=== PATIENT | male | born 1990 | race Caucasian/White ===

== ENCOUNTER 2017-01-03 11:14 | Inpatient (IN) | payer OTHER ==
[2017-01-03 11:47] VITALS: BMI 26.6
--- NOTE | 2017-01-03 15:06 | HP ---
CIWA Score - CIWA Score Nausea/Vomitin-Mild Nausea/No Vomiting Muscle Tremors: 4-Moderate,w/Arms Extend Anxiety: 4-Mod. Anxious/Guarded Agitation: 4-Moderately Restless Paroxysmal Sweats: 3 Orientation: 0-Oriented Tacttile Disturbances: 0-None Auditory Disturbances: 0-None Visual Disturbances: 0-None Headache: 0-None Present CIWA-Ar Total Score: 16 Admission ROS BHS - HPI Chief Complaint: Withdrawal sx. Allergies/Adverse Reactions: Allergies Allergy/AdvReac Type Severity Reaction Status Date / Time No Known Allergies Allergy Verified 01/03/17 13:30 History of Present Illness: 26 y/o man with hx. of cocaine & alcohol dependence is admitted for detox.Pt. has been in previous detox,denies significant sobriety. Exam Limitations: No Limitations - Ebola screening Have you traveled outside of the country in the last 21 days: No Have you had contact with anyone from an Ebola affected area: No Have you been sick,other than usual withdrawal symptoms: No Do you have a fever: No - Review of Systems Constitutional: Diaphoresis EENT: reports: No Symptoms Reported Respiratory: reports: No Symptoms reported Cardiac: reports: No Symptoms Reported GI: reports: Nausea, Abdominal cramping : reports: No Symptoms Reported Musculoskeletal: reports: No Symptoms Reported Integumentary: reports: Sweating Neuro: reports: Tremors Endocrine: reports: No Symptoms Reported Hematology: reports: No Symptoms Reported Psychiatric: reports: No Sypmtoms Reported Other Systems: Reviewed and Negative Patient History - Patient Medical History Hx Anemia: No Hx Asthma: No Hx Chronic Obstructive Pulmonary Disease (COPD): No Hx Cancer: No Hx Cardiac Disorders: No Hx Congestive Heart Failure: No Hx Hypertension: No Hx Hypercholesterolemia: No Hx Pacemaker: No HX Cerebrovascular Accident: No Hx Seizures: No Hx Dementia: No Hx Diabetes: No Hx Gastrointestinal Disorders: No Hx Liver Disease: No Hx Genitourinary Disorders: No Hx Sexually Transmitted Disorders: No Hx Renal Disease (ESRD): No Hx Thyroid Disease: No Hx Human Immunodeficiency Virus (HIV): No Hx Hepatitis C: No Hx Depression: Yes Hx Suicide Attempt: Yes (Pt tried to cut his wrist in 2014) Hx Bipolar Disorder: No Hx Schizophrenia: Yes - Patient Surgical History Past Surgical History: No Hx Neurologic Surgery: No Hx Cataract Extraction: No Hx Cardiac Surgery: No Hx Lung Surgery: No Hx Breast Surgery: No Hx Breast Biopsy: No Hx Abdominal Surgery: No Hx Appendectomy: No Hx Cholecystectomy: No Hx Genitourinary Surgery: No Hx Section: No Hx Orthopedic Surgery: No Anesthesia Reaction: No - PPD History Documented Results: Negative w/proof Implanted On Prior R Admission?: Yes Date: 11/10/16 Results: 0 MM PPD to be Administered?: No - Smoking Cessation Smoking history: Current every day smoker Have you smoked in the past 12 months: Yes Aproximately how many cigarettes per day: 2 Cigars Per Day: 0 Hx Chewing Tobacco Use: No Initiated information on smoking cessation: Yes 'Breaking Loose' booklet given: 01/03/17 - Substance & Tx. History Hx Alcohol Use: Yes Hx Substance Use: Yes Substance Use Type: Alcohol Hx Substance Use Treatment: Yes (detox) - Substances Abused Alcohol Route: Oral Frequency: Daily Amount used: 6PK BEER Age of first use: 12 Date of Last Use: 01/02/17 Cocaine Route: Inhalation Frequency: 1-3 times last 30 days Amount used: 2-3 BAGS Age of first use: 12 Date of Last Use: 01/02/17 Family Disease History - Family Disease History Family Disease History: Diabetes: Mother, Other: Father (mental health), Brother (mental health), Sister (mental health) Admission Physical Exam BHS - Vital Signs Vital Signs: Vital Signs - 24 hr 01/03/17 11:45 Temperature 97.8 F Pulse Rate 88 Respiratory 18 Rate Blood Pressure 127/71 - Physical General Appearance: Yes: Tremorous, Irritable, Sweating, Anxious HEENTM: Yes: Within Normal Limits Respiratory: Yes: Chest Non-Tender, Lungs Clear, Normal Breath Sounds Neck: Yes: Supple Breast: Yes: Breast Exam Deferred Cardiology: Yes: Regular Rhythm, Regular Rate, S1, S2 Abdominal: Yes: Normal Bowel Sounds, Non Tender, Soft Genitourinary: Yes: Within Normal Limits Back: Yes: Within Normal Limits Musculoskeletal: Yes: Within Normal Limits Extremities: Yes: Tremors Neurological: Yes: Fully Oriented, Alert Integumentary: Yes: Diaphoresis Lymphatic: Yes: Within Normal Limits - Diagnostic (1) Alcohol dependence with uncomplicated withdrawal Current Visit: Yes Status: Acute (2) Cocaine dependence Current Visit: Yes Status: Acute Qualifiers: Substance use status: uncomplicated Qualified Code(s): F14.20 - Cocaine dependence, uncomplicated (3) Nicotine dependence Current Visit: Yes Status: Acute Qualifiers: Nicotine product type: cigarettes Substance use status: uncomplicated Qualified Code(s): F17.210 - Nicotine dependence, cigarettes, uncomplicated (4) Schizophrenia Current Visit: Yes Status: Suspected Qualifiers: Schizophrenia type: unspecified Qualified Code(s): F20.9 - Schizophrenia, unspecified Cleared for Admission BHS - Detox or Rehab [facility] Level of Care: Medically Managed Detox Regimen/Protocol: Librium S Breath Alcohol Content Breath Alcohol Content: 0 Urine Drug Screen - Results Drug Screen Negative: No Urine Drug Screen Results: GURDEEP-Cocaine
[2017-01-03] MEDS ORDERED: chlordiazePOXIDE HCL 25 MG CAPSULE PO PRN (15:11)
[2017-01-03] MEDS ORDERED: MENTHOL/PHENOL 1 EACH UD MM PRN (15:11)
[2017-01-03] MEDS ORDERED: MAG HYDROX/AL HYDROX/SIMETH 30 ML UNIT-DOSE CUP PO PRN (15:11)
[2017-01-03] MEDS ORDERED: MAGNESIUM CITRATE 300 ML BOTTLE PO PRN (15:11)
[2017-01-03] MEDS ORDERED: MAGNESIUM HYDROX 2400MG/30ML ORAL SUSPENSION 30 ML CUP PO PRN (15:11)
[2017-01-03] MEDS ORDERED: ACETAMINOPHEN 325 MG TABLET (FP) PO PRN (15:11)
[2017-01-03] MEDS ORDERED: guaiFENesin/D-METHORPHAN HB 10 ML UNIT-DOSE CUPS PO PRN (15:11)
[2017-01-03] MEDS ORDERED: diphenhydrAMINE HCL 50 MG CAPSULE PO PRN (15:11)
[2017-01-03] MEDS ORDERED: IBUPROFEN 400 MG TABLET (FP) PO PRN (15:11)
[2017-01-03] MEDS ORDERED: P-EPHED 60MG/TRIPROLIDI 2.5MG TABLET PO PRN (15:11)
[2017-01-03] MEDS ORDERED: LOPERAMIDE HCL 2 MG CAPSULE PO PRN (15:11)
[2017-01-03] MEDS: chlordiazePOXIDE HCL 25 MG CAPSULE PO SCH ×2 (17:05→22:27)
[2017-01-03 18:51] LABS: HIV 1 & 2 AB NEGATIVE; HIV 1 AGp24 NEGATIVE
[2017-01-03 20:40] LABS: URINE APPEARANCE CLEAR; URINE BILIRUBIN NEGATIVE (NEGATIVE); URINE BLOOD NEGATIVE (NEGATIVE); URINE COLOR LTYELLOW; URINE GLUCOSE (UA) NEGATIVE (NEGATIVE); URINE KETONE NEGATIVE (NEGATIVE); URINE LEUK ESTERASE NEGATIVE (NEGATIVE); URINE NITRITE NEGATIVE (NEGATIVE); URINE PROTEIN NEGATIVE (NEGATIVE); URINE UROBILINOGEN NEGATIVE E.U./dl (0.2-1.0)
[2017-01-03] MEDS: THIAMINE HCL 100 MG TABLET (FP) PO SCH (22:27)
[2017-01-04] MEDS: chlordiazePOXIDE HCL 25 MG CAPSULE PO SCH ×4 (06:22→22:36)
[2017-01-04 10:17] LABS: MCH 28.8 pg (25.7-33.7); MCHC 32.6 g/dl (32.0-35.9); MEAN CELL VOLUME 88.2 fl (80-96); MEAN PLT VOLUME 9.3 fl (7.5-11.1); PLATELET COUNT 299 K/MM3 (134-434); RDW 13.4 % (11.9-15.9); WHITE BLOOD COUNT 7.6 K/mm3 (4.0-10.0)
[2017-01-04] MEDS: PRENATAL VITAMINS W/ FOLIC ACID TABLET (FP) PO SCH (10:19)
[2017-01-04 10:39] LABS: ALBUMIN 4.2 g/dl (3.4-5.0); ALK PHOS 87 U/L (45-117); ANION GAP 10 (8-16); BILIRUBIN,TOTAL 0.3 mg/dL (0.2-1.0); CO2 28 mmol/L (21-32); CREATININE 1.3 mg/dL (0.7-1.3); GLUCOSE,RANDOM 75 mg/dL (74-106); SGOT/AST 20 U/L (15-37); SGPT/ALT 33 U/L (12-78); TOT PROT 7.5 g/dl (6.4-8.2)
--- NOTE | 2017-01-04 10:42 | PN ---
[facility] CIWA - CIWA Score Nausea/Vomitin-No Nausea/No Vomiting Muscle Tremors: 4-Moderate,w/Arms Extend Anxiety: 5 Agitation: 3 Paroxysmal Sweats: 2 Orientation: 0-Oriented Tacttile Disturbances: 2-Mild Itch/Numbness/Burn Auditory Disturbances: 0-None Visual Disturbances: 0-None Headache: 0-None Present CIWA-Ar Total Score: 16 BHS Progress Note (SOAP) Subjective: ANXIETY,TREMORS,FATIGUE,"FEELING DROWSY". Objective: 01/04/17 10:41 Vital Signs Temperature 97.2 F L 01/03/17 23:29 Pulse Rate 85 01/03/17 23:29 Respiratory Rate 18 01/04/17 03:30 Blood Pressure 110/81 01/03/17 23:29 O2 Sat by Pulse Oximetry (%) Laboratory Last Values WBC 7.6 K/mm3 (4.0-10.0) 01/04/17 06:20 RBC 4.91 M/mm3 (4.00-5.60) 01/04/17 06:20 Hgb 14.1 GM/dL (11.7-16.9) 01/04/17 06:20 Hct 43.3 % (35.4-49) 01/04/17 06:20 MCV 88.2 fl (80-96) 01/04/17 06:20 MCHC 32.6 g/dl (32.0-35.9) 01/04/17 06:20 RDW 13.4 % (11.9-15.9) 01/04/17 06:20 Plt Count 299 K/MM3 (134-434) D 01/04/17 06:20 MPV 9.3 fl (7.5-11.1) 01/04/17 06:20 Urine Color Ltyellow 01/03/17 20:15 Urine Appearance Clear 01/03/17 20:15 Urine pH 5.0 (5.0-8.0) 01/03/17 20:15 Ur Specific [place] 1.015 (1.001-1.035) 01/03/17 20:15 Urine Protein Negative (NEGATIVE) 01/03/17 20:15 Urine Glucose (UA) Negative (NEGATIVE) 01/03/17 20:15 Urine Ketones Negative (NEGATIVE) 01/03/17 20:15 Urine Blood Negative (NEGATIVE) 01/03/17 20:15 Urine Nitrite Negative (NEGATIVE) 01/03/17 20:15 Urine Bilirubin Negative (NEGATIVE) 01/03/17 20:15 Urine Urobilinogen Negative E.U./dl (0.2-1.0) 01/03/17 20:15 Ur Leukocyte Esterase Negative (NEGATIVE) 01/03/17 20:15 HIV 1&2 Antibody Screen Negative 01/03/17 14:00 HIV P24 Antigen Negative 01/03/17 14:00 Assessment: 01/04/17 10:41 WITHDRAWAL SX Plan: CONTINUE DETOX
--- NOTE | 2017-01-04 11:56 | CONSULT ---
[facility] Psychiatric Consult - Data Date of interview: 01/04/17 Admission source: [facility] Identifying data: Readmission to [facility] for this 26 y/o male seeking detox treatment on for alcohol and cocaine dependence.Patient is ,a father of one,domiciled,unemployed and dependent on friends for financial support. Substance Abuse History: - Smoking Cessation. Smoking history: Current every day smoker. Have you smoked in the past 12 months: Yes. Aproximately how many cigarettes per day: 2. Cigars Per Day: 0. Hx Chewing Tobacco Use: No. Initiated information on smoking cessation: Yes. 'Breaking Loose' booklet given : 01/03/17. - Substance & Tx. History. Hx Alcohol Use: Yes. Hx Substance Use : Yes. Substance Use Type: Alcohol. Hx Substance Use Treatment: Yes (detox). - Substances Abused. Alcohol. Route: Oral. Frequency: Daily. Amount used : 6PK BEER. Age of first use: 12. Date of Last Use: 01/02/17. Cocaine. Route: Inhalation. Frequency: 1-3 times last 30 days. Amount used: 2-3 BAGS. Age of first use: 12. Date of Last Use: 01/02/17. Confirmed by patient in this interview. Medical History: No reported medical problems. Psychiatric History: History of " a few " psychiatric hospitalizations ([facility] in [facility]).Diagnosed with " schizophrenia and bipolar disorder." Patient states that he is prescibed zoloft and " some other stuff." No OPD care providers.Mr He reports that he had just returned to [facility] a week ago.Non adherent to medications.hHistory of suicide attempt via self- mutilation. Physical/Sexual Abuse/Trauma History: Patient denies. Additional Comment: Urine Drug Screen Results: GURDEEP-Cocaine.Noted. Mental Status Exam - Mental Status Exam Alert and Oriented to: Time, Place, Person Cognitive Function: Good Patient Appearance: Well Groomed Mood: Nervous, Withdrawn Affect: Mood Congruent Patient Behavior: Fatigued, Cooperative (superficially) Speech Pattern: Clear Voice Loudness: Normal Thought Process: Goal Oriented Thought Disorder: Not Present Hallucinations: Denies Suicidal Ideation: Denies Homicidal Ideation: Denies Insight/Judgement: Poor Sleep: Well Appetite: Good Muscle strength/Tone: Normal Gait/Station: Normal Psychiatric Findings - Problem List ([place] 1, 2,3) (1) Alcohol dependence with uncomplicated withdrawal Current Visit: Yes Status: Acute (2) Cocaine dependence Current Visit: Yes Status: Acute Qualifiers: Substance use status: uncomplicated Qualified Code(s): F14.20 - Cocaine dependence, uncomplicated (3) Nicotine dependence Current Visit: Yes Status: Acute Qualifiers: Nicotine product type: cigarettes Substance use status: uncomplicated Qualified Code(s): F17.210 - Nicotine dependence, cigarettes, uncomplicated (4) Schizophrenia Current Visit: Yes Status: Chronic Qualifiers: Schizophrenia type: unspecified Qualified Code(s): F20.9 - Schizophrenia, unspecified (5) Onychomycosis Current Visit: Yes Status: Chronic Comment: keale - Initial Treatment Plan Initial Treatment Plan: Psychoeducation.Detoxification.Medications : haldol 5 mg po bid + cogentin 1 mg po bid.Side effects/benefits discussed with the patient.He agrees with this careplan.Observation.
[2017-01-04] MEDS ORDERED: PNEUMOC 13-VAL CONJ-DIP CRM/PF 0.5 ML DISP.SYRIN IM ONE (12:00)
[2017-01-04] MEDS ORDERED: INFLUENZA VACCINE 45 MCG/0.5 ML (MDV 16-17) IM ONE (12:00)
[2017-01-04] MEDS ORDERED: PNEUMOCOCCAL 23 VACCINE 0.5 ML VIAL IM ONE (12:00)
[2017-01-04] MEDS ORDERED: BENZTROPINE MESYLATE 1 MG TABLET (FP) PO SCH (12:30)
[2017-01-04] MEDS ORDERED: HALOPERIDOL 5 MG TABLET (FP) PO SCH (12:30)
--- NOTE | 2017-01-04 16:12 | EKG ---
Test Reason : Blood Pressure : / mmHG Vent. Rate : 065 BPM Atrial Rate : 065 BPM P-R Int : 136 ms QRS Dur : 092 ms QT Int : 392 ms P-R-T Axes : 015 060 038 degrees QTc Int : 407 ms NORMAL SINUS RHYTHM WITH SINUS ARRHYTHMIA NORMAL ECG NO PREVIOUS ECGS AVAILABLE Confirmed by PATO JACQUES, ALIREZA ([id number]) on 01/04/2017 4:12:30 PM Referred By: Confirmed By:ALIREZA WHYTE MD
--- NOTE | 2017-01-04 20:04 | PN ---
[facility] Progress Note Note: Psychiatry Attending's note : YUNG Ambirz reported patient as sedated. Report was received much earlier,around 4 PM. Patient seen at bedside.Did answer to simple questions. Was able to follow simple commands.No evidence of distress. Plan : haldol and cogentin on hold until further orders. Discussed with the reporting nurse.
[2017-01-04] MEDS: THIAMINE HCL 100 MG TABLET (FP) PO SCH (22:36)
[2017-01-05] MEDS: chlordiazePOXIDE HCL 25 MG CAPSULE PO SCH ×2 (06:20→10:15)
[2017-01-05 09:57] VITALS: BP 129/87; PULSE 79; TEMP 97.1
[2017-01-05] MEDS ORDERED: SERTRALINE HCL 50 MG TABLET (FP) PO SCH (10:00)
[2017-01-05] MEDS: PRENATAL VITAMINS W/ FOLIC ACID TABLET (FP) PO SCH (10:14)
--- NOTE | 2017-01-05 10:36 | PN ---
[facility] CIWA - CIWA Score Nausea/Vomitin-No Nausea/No Vomiting Muscle Tremors: 4-Moderate,w/Arms Extend Anxiety: 4-Mod. Anxious/Guarded Agitation: 2 Paroxysmal Sweats: 2 Orientation: 0-Oriented Tacttile Disturbances: 3-Moderate Itch/Numb/Burn Auditory Disturbances: 0-None Visual Disturbances: 0-None Headache: 0-None Present CIWA-Ar Total Score: 15 BHS Progress Note (SOAP) Subjective: ANXIETY,SWEATS,TREMORS. Objective: 01/05/17 10:36 Vital Signs Temperature 97.1 F L 01/05/17 09:56 Pulse Rate 79 01/05/17 09:56 Respiratory Rate 18 01/05/17 09:56 Blood Pressure 129/87 01/05/17 09:56 O2 Sat by Pulse Oximetry (%) Laboratory Last Values WBC 7.6 K/mm3 (4.0-10.0) 01/04/17 06:20 RBC 4.91 M/mm3 (4.00-5.60) 01/04/17 06:20 Hgb 14.1 GM/dL (11.7-16.9) 01/04/17 06:20 Hct 43.3 % (35.4-49) 01/04/17 06:20 MCV 88.2 fl (80-96) 01/04/17 06:20 MCHC 32.6 g/dl (32.0-35.9) 01/04/17 06:20 RDW 13.4 % (11.9-15.9) 01/04/17 06:20 Plt Count 299 K/MM3 (134-434) D 01/04/17 06:20 MPV 9.3 fl (7.5-11.1) 01/04/17 06:20 Sodium 142 mmol/L (136-145) 01/04/17 06:20 Potassium 4.3 mmol/L (3.5-5.1) 01/04/17 06:20 Chloride 104 mmol/L (98-107) 01/04/17 06:20 Carbon Dioxide 28 mmol/L (21-32) 01/04/17 06:20 Anion Gap 10 (8-16) 01/04/17 06:20 BUN 9 mg/dL (7-18) D 01/04/17 06:20 Creatinine 1.3 mg/dL (0.7-1.3) 01/04/17 06:20 Creat Clearance w eGFR > 60 (>60) 01/04/17 06:20 Random Glucose 75 mg/dL (74-106) 01/04/17 06:20 Calcium 9.0 mg/dL (8.5-10.1) 01/04/17 06:20 Total Bilirubin 0.3 mg/dL (0.2-1.0) D 01/04/17 06:20 AST 20 U/L (15-37) D 01/04/17 06:20 ALT 33 U/L (12-78) D 01/04/17 06:20 Alkaline Phosphatase 87 U/L (45-117) 01/04/17 06:20 Total Protein 7.5 g/dl (6.4-8.2) 01/04/17 06:20 Albumin 4.2 g/dl (3.4-5.0) D 01/04/17 06:20 Urine Color Ltyellow 01/03/17 20:15 Urine Appearance Clear 01/03/17 20:15 Urine pH 5.0 (5.0-8.0) 01/03/17 20:15 Ur Specific [place] 1.015 (1.001-1.035) 01/03/17 20:15 Urine Protein Negative (NEGATIVE) 01/03/17 20:15 Urine Glucose (UA) Negative (NEGATIVE) 01/03/17 20:15 Urine Ketones Negative (NEGATIVE) 01/03/17 20:15 Urine Blood Negative (NEGATIVE) 01/03/17 20:15 Urine Nitrite Negative (NEGATIVE) 01/03/17 20:15 Urine Bilirubin Negative (NEGATIVE) 01/03/17 20:15 Urine Urobilinogen Negative E.U./dl (0.2-1.0) 01/03/17 20:15 Ur Leukocyte Esterase Negative (NEGATIVE) 01/03/17 20:15 RPR Titer Nonreactive (NONREACTIVE) 01/04/17 06:20 HIV 1&2 Antibody Screen Negative 01/03/17 14:00 HIV P24 Antigen Negative 01/03/17 14:00 Assessment: 01/05/17 10:36 WITHDRAWAL SX Plan: CONTINUE DETOX
--- NOTE | 2017-01-05 13:16 | DS ---
[facility] Detox Discharge Summary Admission Date: 01/03/17 Discharge Date: 01/05/17 - History Present History: Alcohol Dependence, Cocaine Dependence Additional Comments: PT DECLINED TO COMPLETE DETOX STATING HE WANTS TO LEAVE. PT SIGNED OUT AMA Pertinent Past History: ONYCHOMYCOSIS SCHIZOPHRENIA - Physical Exam Results Vital Signs: Vital Signs Temperature 97.1 F L 01/05/17 09:56 Pulse Rate 79 01/05/17 09:56 Respiratory Rate 18 01/05/17 09:56 Blood Pressure 129/87 01/05/17 09:56 O2 Sat by Pulse Oximetry (%) Pertinent Admission Physical Exam Findings: WITHDRAWAL SX - Treatment Hospital Course: Discharged Condition Good - Medication Discharge Medications: Ambulatory Orders Benztropine Mesylate [Cogentin -] 1 mg PO BID #60 tablet 11/09/16 Haloperidol [Haldol -] 5 mg PO BID #60 tablet 11/09/16 Sertraline HCl [Zoloft -] 50 mg PO DAILY #60 tablet 11/09/16 Benztropine Mesylate [Cogentin -] 1 mg PO BID #60 tab 01/04/17 Haloperidol [Haldol -] 5 mg PO BID #60 tablet 01/04/17 Sertraline HCl [Zoloft -] 50 mg PO DAILY #30 tablet 01/04/17 - Diagnosis (1) Alcohol dependence with uncomplicated withdrawal Status: Acute (2) Nicotine dependence Status: Acute Qualifiers: Nicotine product type: cigarettes Substance use status: in withdrawal Qualified Code(s): F17.213 - Nicotine dependence, cigarettes, with withdrawal (3) Cocaine dependence Status: Acute Qualifiers: Substance use status: uncomplicated Qualified Code(s): F14.20 - Cocaine dependence, uncomplicated (4) Schizophrenia Status: Chronic Qualifiers: Schizophrenia type: unspecified Qualified Code(s): F20.9 - Schizophrenia, unspecified - AMA Did Patient Leave Against Medical Advice: Yes (AMA)
[2017-01-05] MEDS ORDERED: chlordiazePOXIDE 5 MG CAPSULE PO SCH (17:00)
[2017-01-06] MEDS ORDERED: chlordiazePOXIDE HCL 10 MG CAPSULE PO SCH (17:00)
== END 2017-01-05 13:37 | disposition left against medical advice (07) | DRG 894 ==
LOC: YASAS 11:14 → Y3N 14:52
PROVIDERS: ADMIT Internal Medicine; ATTEND Internal Medicine
PROC: HZ2ZZZZ Detoxification Services for Substance Abuse Treatment (ICD-10-PCS; principal; 2017-01-03)
DX: F10.230 Alcohol dependence with withdrawal, uncomplicated (principal); F14.20 Cocaine dependence, uncomplicated; F17.210 Nicotine dependence, cigarettes, uncomplicated; F20.9 Schizophrenia, unspecified; Z91.5 Personal history of self-harm; B35.1 Tinea unguium
CPT/HCPCS: 36415; 80053; 81003; 85027; 86593; 87389; 90732; 93005; 93010; G0009

== ENCOUNTER 2017-07-15 16:48 | Inpatient (IN) | payer OTHER ==
[2017-07-15 16:54] VITALS: BMI 26.2
--- NOTE | 2017-07-15 19:02 | HP ---
Admission ROS [facility] Chief Complaint: wants to stop using drugs (cocoaine ) and get psychiatric care to take care of himself, has been binge drinking alcohol but not every day recently Allergies/Adverse Reactions: Allergies Allergy/AdvReac Type Severity Reaction Status Date / Time No Known Allergies Allergy Verified 01/03/17 13:30 History of Present Illness: 27 yo m with h/o chronic alcoholism with JARAD, cocoaine dependence, schizoaffective do, PTSD with multiple admissions to detox and rehab at [facility];y has been up for many days drinking and using cocaine wants to come in for help detox and rehab. smokes 1PPD when he uses drugs. no other medical illness. Exam Limitations: No Limitations - Ebola screening Have you traveled outside of the country in the last 21 days: No Have you had contact with anyone from an Ebola affected area: No Have you been sick,other than usual withdrawal symptoms: No Do you have a fever: No - Review of Systems Constitutional: Chills, Loss of Appetite, Changes in sleep, Weakness, Unintentional Wgt. Loss EENT: reports: No Symptoms Reported Respiratory: reports: No Symptoms reported Cardiac: reports: No Symptoms Reported GI: reports: Nausea, Poor Appetite, Poor Fluid Intake, Abdominal cramping : reports: No Symptoms Reported Musculoskeletal: reports: Back Pain, Muscle Pain, Muscle Weakness Integumentary: reports: Flushing, Sweating Neuro: reports: Headache, Tremors, Weakness Endocrine: reports: No Symptoms Reported Hematology: reports: No Symptoms Reported Psychiatric: reports: Mood/Affect Appropiate, Orientated x3, Agitated, Anxious, Depressed, Disorientated, other (can not remember what he has been up to the past few days) Other Systems: Reviewed and Negative Patient History - Patient Medical History Hx Anemia: No Hx Asthma: No Hx Chronic Obstructive Pulmonary Disease (COPD): No Hx Cancer: No Hx Cardiac Disorders: No Hx Congestive Heart Failure: No Hx Hypertension: No Hx Hypercholesterolemia: No Hx Pacemaker: No HX Cerebrovascular Accident: No Hx Seizures: No Hx Dementia: No Hx Diabetes: No Hx Gastrointestinal Disorders: No Hx Liver Disease: No Hx Genitourinary Disorders: No Hx Sexually Transmitted Disorders: No Hx Renal Disease (ESRD): No Hx Thyroid Disease: No Hx Human Immunodeficiency Virus (HIV): No Hx Hepatitis C: No Hx Depression: Yes Hx Suicide Attempt: Yes (Pt tried to cut his wrist in 2014) Hx Bipolar Disorder: No Hx Schizophrenia: Yes - Patient Surgical History Past Surgical History: No Hx Neurologic Surgery: No Hx Cataract Extraction: No Hx Cardiac Surgery: No Hx Lung Surgery: No Hx Breast Surgery: No Hx Breast Biopsy: No Hx Abdominal Surgery: No Hx Appendectomy: No Hx Cholecystectomy: No Hx Genitourinary Surgery: No Hx Section: No Hx Orthopedic Surgery: No Hx Hysterectomy: No Anesthesia Reaction: No - PPD History Previous Implant?: Yes Documented Results: Negative w/proof Date: 11/10/16 Results: 0 MM - Reproductive History Patient is a Female of Child Bearing Age (11 -55 yrs old): No Patient : No - Smoking Cessation Smoking history: Current every day smoker Have you smoked in the past 12 months: Yes Aproximately how many cigarettes per day: 20 Cigars Per Day: 0 Hx Chewing Tobacco Use: No Initiated information on smoking cessation: Yes 'Breaking Loose' booklet given: 07/15/17 - Substance & Tx. History Hx Alcohol Use: Yes Hx Substance Use: Yes Substance Use Type: Alcohol, Cocaine Hx Substance Use Treatment: Yes (multiple inpatient detox and rehab at [facility] last in 12/30) - Substances Abused Cocaine Route: Inhalation Frequency: Daily Amount used: as much as he can Age of first use: 12 Date of Last Use: 07/15/17 Alcohol Route: Oral Frequency: Daily Amount used: anything beer vodka 1-2 pints daily, 1 6 pack Age of first use: 11 Date of Last Use: 07/15/17 Family Disease History - Family Disease History Family Disease History: Diabetes: Mother, Other: Father (mental health), Brother (mental health), Sister (mental health) Admission Physical Exam S - Vital Signs Vital Signs: Vital Signs - 24 hr 07/15/17 16:51 Temperature 98.0 F Pulse Rate 70 Respiratory 18 Rate Blood Pressure 122/100 - Physical General Appearance: Yes: Nourished, Appropriately Dressed, Disheveled, Moderate Distress, Thin, Tremorous, Irritable, Sweating, Anxious HEENTM: Yes: Within Normal Limits, EOMI, Hearing grossly Normal, Normal ENT Inspection, Normocephalic, Normal Voice, ANEUDY, Pharynx Normal Respiratory: Yes: Within Normal Limits, Chest Non-Tender, Lungs Clear, Normal Breath Sounds, No Respiratory Distress, No Accessory Muscle Use Neck: Yes: Within Normal Limits, No masses,lesions,Nodules, Supple, Trachea in good position Breast: Yes: Breast Exam Deferred Cardiology: Yes: Within Normal Limits, Regular Rhythm, Regular Rate, S1, S2 Abdominal: Yes: Normal Bowel Sounds, Non Tender, Flat, Soft, Increased Bowel Sounds Genitourinary: Yes: Within Normal Limits Back: Yes: Normal Inspection, Muscle Spasm Extremities: Yes: Normal Capillary Refill, Normal Inspection, Normal Range of Motion, Non-Tender, Tremors, Coldness Neurological: Yes: housekeeper II-XII NML intact, Fully Oriented, Alert, Motor Strength 5/5, Disoriented, Depressed Affect Integumentary: Yes: Normal Color, Warm, Clammy, Diaphoresis, Moist Lymphatic: Yes: Within Normal Limits - Addiitonal Findings: withdrawal sx present - Diagnostic (1) Alcohol dependence with uncomplicated withdrawal Current Visit: Yes Status: Chronic (2) Cocaine dependence Current Visit: Yes Status: Chronic Qualifiers: Substance use status: uncomplicated Qualified Code(s): F14.20 - Cocaine dependence, uncomplicated (3) Nicotine dependence Current Visit: Yes Status: Chronic Qualifiers: Nicotine product type: cigarettes Substance use status: in withdrawal Qualified Code(s): F17.213 - Nicotine dependence, cigarettes, with withdrawal (4) Schizophrenia Current Visit: Yes Status: Chronic Qualifiers: Schizophrenia type: unspecified Qualified Code(s): F20.9 - Schizophrenia, unspecified BHS Breath Alcohol Content Breath Alcohol Content: 0 Urine Drug Screen - Results Drug Screen Negative: No Urine Drug Screen Results: GURDEEP-Cocaine
[2017-07-15] MEDS ORDERED: MAG HYDROX/AL HYDROX/SIMETH 30 ML UNIT-DOSE CUP PO PRN (19:06)
[2017-07-15] MEDS ORDERED: MAGNESIUM HYDROX 2400MG/30ML ORAL SUSPENSION 30 ML CUP PO PRN (19:06)
[2017-07-15] MEDS ORDERED: hydrOXYzine PAMOATE 50 MG CAPSULE (FP) PO PRN (19:06)
[2017-07-15] MEDS ORDERED: guaiFENesin/D-METHORPHAN HB 10 ML UNIT-DOSE CUPS PO PRN (19:06)
[2017-07-15] MEDS ORDERED: LOPERAMIDE HCL 2 MG CAPSULE PO PRN (19:06)
[2017-07-15] MEDS ORDERED: MAGNESIUM CITRATE 300 ML BOTTLE PO PRN (19:06)
[2017-07-15] MEDS ORDERED: NICOTINE POLACRILEX 4 MG GUM BUC PRN (19:06)
[2017-07-15] MEDS ORDERED: P-EPHED 60MG/TRIPROLIDI 2.5MG TABLET PO PRN (19:06)
[2017-07-15] MEDS ORDERED: ACETAMINOPHEN 325 MG TABLET (FP) PO PRN (19:06)
[2017-07-15] MEDS ORDERED: IBUPROFEN 400 MG TABLET (FP) PO PRN (19:06)
[2017-07-15] MEDS ORDERED: chlordiazePOXIDE HCL 25 MG CAPSULE PO PRN (19:06)
[2017-07-15] MEDS ORDERED: diphenhydrAMINE HCL 50 MG CAPSULE PO PRN (19:06)
[2017-07-15] MEDS ORDERED: MENTHOL/PHENOL 1 EACH UD MM PRN (19:06)
[2017-07-15] MEDS: THIAMINE HCL 100 MG TABLET (FP) PO SCH (23:18)
[2017-07-15] MEDS: NICOTINE 21 MG/24 HOURS TOPICAL PATCH TD SCH (23:18)
[2017-07-15] MEDS: chlordiazePOXIDE HCL 25 MG CAPSULE PO SCH (23:19)
[2017-07-16] MEDS: chlordiazePOXIDE HCL 25 MG CAPSULE PO SCH ×4 (05:36→22:34)
[2017-07-16 10:35] LABS: MCHC 33.4 g/dl (32.0-35.9); MEAN CELL VOLUME 86.8 fl (80-96); MEAN PLT VOLUME 8.8 fl (7.5-11.1); PLATELET COUNT 249 K/MM3 (134-434); RDW 13.1 % (11.9-15.9)
[2017-07-16 11:06] LABS: ALBUMIN 3.7 g/dl (3.4-5.0); ALK PHOS 74 U/L (45-117); ANION GAP 9 (8-16); BILIRUBIN,TOTAL 0.6 mg/dL (0.2-1.0); CO2 30 mmol/L (21-32); CREATININE 1.1 mg/dL (0.7-1.3); GLUCOSE,RANDOM 79 mg/dL (74-106); SGOT/AST 30 U/L (15-37); SGPT/ALT 30 U/L (12-78); TOT PROT 6.5 g/dl (6.4-8.2)
[2017-07-16] MEDS: PRENATAL VITAMINS W/ FOLIC ACID TABLET (FP) PO SCH (11:06)
[2017-07-16] MEDS: NICOTINE 21 MG/24 HOURS TOPICAL PATCH TD SCH (11:06)
--- NOTE | 2017-07-16 13:56 | EKG ---
Test Reason : Blood Pressure : / mmHG Vent. Rate : 045 BPM Atrial Rate : 045 BPM P-R Int : 142 ms QRS Dur : 084 ms QT Int : 446 ms P-R-T Axes : 033 063 049 degrees QTc Int : 385 ms MARKED SINUS BRADYCARDIA WHEN COMPARED WITH ECG OF 03-JAN-2017 15:29, DECREASE IN HEART RATE REPEAT EKG IF CLINICALLY INDICATED Confirmed by RUBY CAMARENA MD ([id number]) on 07/16/2017 1:56:42 PM Referred By: Confirmed By:RUBY CAMARENA MD
--- NOTE | 2017-07-16 14:27 | PN ---
S CIWA - CIWA Score Nausea/Vomitin Muscle Tremors: 4-Moderate,w/Arms Extend Anxiety: 3 Agitation: 1-Slight > Activity Paroxysmal Sweats: 2 Orientation: 0-Oriented Tacttile Disturbances: 0-None Auditory Disturbances: 1-Very Mild Visual Disturbances: 2-Mild Sensitivity Headache: 3-Moderate CIWA-Ar Total Score: 19 S Progress Note (SOAP) Subjective: Interrupted sleep, Body Aches, Stomach Cramping, H/A, Tremors. Objective: PT. A & O X 3. NO ACUTE DISTRESS. 07/16/17 14:25 Vital Signs Temperature 99.0 F 07/16/17 14:21 Pulse Rate 70 07/16/17 14:21 Respiratory Rate 20 07/16/17 14:21 Blood Pressure 120/71 07/16/17 14:21 O2 Sat by Pulse Oximetry (%) Laboratory Tests 07/16/17 07/16/17 07/16/17 07:00 07:00 07:00 WBC 10.0 D RBC 4.72 Hgb 13.7 Hct 41.0 MCV 86.8 MCH 29.0 MCHC 33.4 RDW 13.1 Plt Count 249 MPV 8.8 Sodium 142 Potassium 4.3 Chloride 103 Carbon Dioxide 30 Anion Gap 9 BUN 14 D Creatinine 1.1 Creat Clearance w eGFR > 60 Random Glucose 79 Calcium 9.0 Total Bilirubin 0.6 D AST 30 D ALT 30 Alkaline Phosphatase 74 Total Protein 6.5 Albumin 3.7 RPR Titer Nonreactive LABS NOTED. UA RESULTS PENDING. 07/16/17 14:27 Assessment: 07/16/17 14:26 WITHDRAWAL SYMPTOMS. Plan: CONTINUE DETOX.
[2017-07-16] MEDS: THIAMINE HCL 100 MG TABLET (FP) PO SCH (22:34)
[2017-07-17] MEDS: chlordiazePOXIDE HCL 25 MG CAPSULE PO SCH ×3 (05:57→17:15)
--- NOTE | 2017-07-17 08:59 | CONSULT ---
[facility] Psychiatric Consult - Data Date of interview: 07/17/17 Admission source: [facility] Identifying data: This is readmission to [address] [place] [address] for this 27 yo H father of 8 yo son,homeless,supported by family. Substance Abuse History: Reports drinking since 13-12 yo,cocaine since 12 yo,2- 3 bags daily. Medical History: unremarkable Psychiatric History: REports being dx with Bipolar disorder then with Schizophrenia about 7 years ago.He had auditory hallucinations which he didnt addressed since school age.Multipla psychiatric hospitalizaions ,most recent recent was last year to [facility].No psychiatric follow up for the last 4 -5 months.Patient report being on Risperidone 1 mg po hs and Remeron 15 mg po hs.He is willing to restart psychiatric medications. Physical/Sexual Abuse/Trauma History: denies Mental Status Exam - Mental Status Exam Alert and Oriented to: Time, Place, Person Cognitive Function: Grossly Intact Patient Appearance: Unkempt Mood: Depressed, Irritable Affect: Labile Patient Behavior: Cooperative Speech Pattern: Clear Voice Loudness: Normal Thought Process: Goal Oriented Hallucinations: Denies Suicidal Ideation: Denies Homicidal Ideation: Denies Insight/Judgement: Fair Sleep: Fair Appetite: Fair Muscle strength/Tone: Normal Gait/Station: Normal Psychiatric Findings - Problem List ([place] 1, 2,3) (1) Cocaine dependence Current Visit: Yes Status: Chronic Qualifiers: Substance use status: uncomplicated Qualified Code(s): F14.20 - Cocaine dependence, uncomplicated (2) Nicotine dependence Current Visit: Yes Status: Chronic Qualifiers: Nicotine product type: cigarettes Substance use status: in withdrawal Qualified Code(s): F17.213 - Nicotine dependence, cigarettes, with withdrawal (3) Schizophrenia Current Visit: Yes Status: Chronic Qualifiers: Schizophrenia type: unspecified Qualified Code(s): F20.9 - Schizophrenia, unspecified (4) Alcohol dependence Current Visit: Yes Status: Chronic - Initial Treatment Plan Initial Treatment Plan: Restart Risperidone 1 mg po hs,Remeron 15 mg po hs.
[2017-07-17] MEDS: NAPROXEN 375 MG TABLET (FP) PO SCH ×2 (10:20→22:18)
[2017-07-17] MEDS: PRENATAL VITAMINS W/ FOLIC ACID TABLET (FP) PO SCH (10:39)
[2017-07-17] MEDS: NICOTINE 21 MG/24 HOURS TOPICAL PATCH TD SCH (10:40)
[2017-07-17] MEDS: SERTRALINE HCL 50 MG TABLET (FP) PO SCH (10:40)
--- NOTE | 2017-07-17 12:28 | PN ---
[facility] CIWA - CIWA Score Nausea/Vomitin-Mild Nausea/No Vomiting Muscle Tremors: 3 Anxiety: 4-Mod. Anxious/Guarded Agitation: 2 Paroxysmal Sweats: 4-Forehead w/Sweat Beads Orientation: 0-Oriented Tacttile Disturbances: 3-Moderate Itch/Numb/Burn Auditory Disturbances: 0-None Visual Disturbances: 0-None Headache: 0-None Present CIWA-Ar Total Score: 17 [facility] Progress Note (SOAP) Subjective: Sweating, Stomach Cramping, Anxious. Pt. reports swelling in Left ankle/ foot X 2-3 days. Pt. reports that he was evaluated in ER for injury to ankle / foot 2 days ago (X-Ray NEGATIVE); however , he is unable to recall how injury occurred. Objective: PT. A & O X 3, OBSERVED AMBULATING ON UNIT. NO ACUTE DISTRESS. SWELLING NOTED IN LEFT ANKLE (AROUND MEDICAL MALLEOLUS). BRUISING NOTED IN AREA OF LEFT HEEL. 07/17/17 12:23 Vital Signs Temperature 97.0 F L 07/17/17 09:13 Pulse Rate 63 07/17/17 09:13 Respiratory Rate 18 07/17/17 09:13 Blood Pressure 95/67 07/17/17 09:13 O2 Sat by Pulse Oximetry (%) Laboratory Tests 07/16/17 07/16/17 07/16/17 07:00 07:00 07:00 WBC 10.0 D RBC 4.72 Hgb 13.7 Hct 41.0 MCV 86.8 MCH 29.0 MCHC 33.4 RDW 13.1 Plt Count 249 MPV 8.8 Sodium 142 Potassium 4.3 Chloride 103 Carbon Dioxide 30 Anion Gap 9 BUN 14 D Creatinine 1.1 Creat Clearance w eGFR > 60 Random Glucose 79 Calcium 9.0 Total Bilirubin 0.6 D AST 30 D ALT 30 Alkaline Phosphatase 74 Total Protein 6.5 Albumin 3.7 RPR Titer Nonreactive LABS NOTED. 07/17/17 12:24 Assessment: 07/17/17 12:24 WITHDRAWAL SYMPTOMS. Plan: CONTINUE DETOX. NAPROXEN, 325 MG PO BID FOR PAIN / SWELLING. ICE PACK TO BE APPLIED INTERMITTENTLY TO LEFT ANKLE. ADVISED PT. TO REST ANKLE AND ELEVATE ANKLE IN BED MUCH POSSIBLE FOR TIME BEING.
[2017-07-17 21:33] LABS: URINE APPEARANCE SLCLOUDY; URINE BILIRUBIN NEGATIVE (NEGATIVE); URINE BLOOD NEGATIVE (NEGATIVE); URINE COLOR YELLOW; URINE GLUCOSE (UA) NEGATIVE (NEGATIVE); URINE KETONE NEGATIVE (NEGATIVE); URINE LEUK ESTERASE NEGATIVE (NEGATIVE); URINE NITRITE NEGATIVE (NEGATIVE); URINE PROTEIN NEGATIVE (NEGATIVE); URINE UROBILINOGEN NEGATIVE mg/dL (0.2-1.0)
[2017-07-17] MEDS: chlordiazePOXIDE 5 MG CAPSULE PO SCH (22:16)
[2017-07-17] MEDS: THIAMINE HCL 100 MG TABLET (FP) PO SCH (22:18)
[2017-07-17] MEDS: MIRTAZAPINE 15 MG TABLET (FP) PO SCH (22:18)
[2017-07-17] MEDS: risperiDONE 1 MG TABLET (FP) PO SCH (22:18)
[2017-07-18] MEDS: chlordiazePOXIDE 5 MG CAPSULE PO SCH ×3 (05:45→17:13)
[2017-07-18] MEDS: NAPROXEN 375 MG TABLET (FP) PO SCH ×2 (10:10→22:16)
[2017-07-18] MEDS: SERTRALINE HCL 50 MG TABLET (FP) PO SCH (10:26)
[2017-07-18] MEDS: PRENATAL VITAMINS W/ FOLIC ACID TABLET (FP) PO SCH (10:26)
[2017-07-18] MEDS: NICOTINE 21 MG/24 HOURS TOPICAL PATCH TD SCH (10:27)
--- NOTE | 2017-07-18 11:11 | PN ---
[facility] Progress Note (SOAP) Subjective: ANXIETY,SWEATS,FATIGUE. Objective: 07/18/17 11:10 Vital Signs Temperature 97.4 F L 07/18/17 09:01 Pulse Rate 60 07/18/17 09:01 Respiratory Rate 18 07/18/17 09:01 Blood Pressure 100/71 07/18/17 09:01 O2 Sat by Pulse Oximetry (%) Laboratory Last Values WBC 10.0 K/mm3 (4.0-10.0) D 07/16/17 07:00 RBC 4.72 M/mm3 (4.00-5.60) 07/16/17 07:00 Hgb 13.7 GM/dL (11.7-16.9) 07/16/17 07:00 Hct 41.0 % (35.4-49) 07/16/17 07:00 MCV 86.8 fl (80-96) 07/16/17 07:00 MCH 29.0 pg (25.7-33.7) 07/16/17 07:00 MCHC 33.4 g/dl (32.0-35.9) 07/16/17 07:00 RDW 13.1 % (11.9-15.9) 07/16/17 07:00 Plt Count 249 K/MM3 (134-434) 07/16/17 07:00 MPV 8.8 fl (7.5-11.1) 07/16/17 07:00 Sodium 142 mmol/L (136-145) 07/16/17 07:00 Potassium 4.3 mmol/L (3.5-5.1) 07/16/17 07:00 Chloride 103 mmol/L (98-107) 07/16/17 07:00 Carbon Dioxide 30 mmol/L (21-32) 07/16/17 07:00 Anion Gap 9 (8-16) 07/16/17 07:00 BUN 14 mg/dL (7-18) D 07/16/17 07:00 Creatinine 1.1 mg/dL (0.7-1.3) 07/16/17 07:00 Creat Clearance w eGFR > 60 (>60) 07/16/17 07:00 Random Glucose 79 mg/dL (74-106) 07/16/17 07:00 Calcium 9.0 mg/dL (8.5-10.1) 07/16/17 07:00 Total Bilirubin 0.6 mg/dL (0.2-1.0) D 07/16/17 07:00 AST 30 U/L (15-37) D 07/16/17 07:00 ALT 30 U/L (12-78) 07/16/17 07:00 Alkaline Phosphatase 74 U/L (45-117) 07/16/17 07:00 Total Protein 6.5 g/dl (6.4-8.2) 07/16/17 07:00 Albumin 3.7 g/dl (3.4-5.0) 07/16/17 07:00 Urine Color Yellow 07/17/17 16:23 Urine Appearance Slcloudy 07/17/17 16:23 Urine pH 6.0 (5.0-8.0) 07/17/17 16:23 Ur Specific [place] 1.025 (1.005-1.025) 07/17/17 16:23 Urine Protein Negative (NEGATIVE) 07/17/17 16:23 Urine Glucose (UA) Negative (NEGATIVE) 07/17/17 16:23 Urine Ketones Negative (NEGATIVE) 07/17/17 16:23 Urine Blood Negative (NEGATIVE) 07/17/17 16:23 Urine Nitrite Negative (NEGATIVE) 07/17/17 16:23 Urine Bilirubin Negative (NEGATIVE) 07/17/17 16:23 Urine Urobilinogen Negative mg/dL (0.2-1.0) 07/17/17 16:23 Ur Leukocyte Esterase Negative (NEGATIVE) 07/17/17 16:23 RPR Titer Nonreactive (NONREACTIVE) 07/16/17 07:00 Assessment: 07/18/17 11:11 WITHDRAWAL SX Plan: CONTINUE DETOX
[2017-07-18] MEDS: MIRTAZAPINE 15 MG TABLET (FP) PO SCH (22:17)
[2017-07-18] MEDS: risperiDONE 1 MG TABLET (FP) PO SCH (22:17)
[2017-07-18] MEDS: chlordiazePOXIDE HCL 10 MG CAPSULE PO SCH (22:17)
[2017-07-18] MEDS: THIAMINE HCL 100 MG TABLET (FP) PO SCH (22:17)
[2017-07-19] MEDS: chlordiazePOXIDE HCL 10 MG CAPSULE PO SCH (05:31)
[2017-07-19 09:31] VITALS: BP 119/75; PULSE 90; TEMP 96.3
[2017-07-19] MEDS: PRENATAL VITAMINS W/ FOLIC ACID TABLET (FP) PO SCH (09:45)
[2017-07-19] MEDS: NAPROXEN 375 MG TABLET (FP) PO SCH (09:45)
[2017-07-19] MEDS: SERTRALINE HCL 50 MG TABLET (FP) PO SCH (09:45)
[2017-07-19] MEDS: NICOTINE 21 MG/24 HOURS TOPICAL PATCH TD SCH (09:46)
--- NOTE | 2017-07-19 10:14 | DS ---
[facility] Detox Discharge Summary Admission Date: 07/15/17 Discharge Date: 07/19/17 - History Present History: Alcohol Dependence, Cocaine Dependence Additional Comments: DETOX COMPLETED. ALERT O X 3. NAD. PT REMINDED TO FOLLOW UP WITH PMD FOR MEDICAL MANAGEMENT AT [facility] NEEDED. Pertinent Past History: HX SCHIZOPHRENIA DEPRESSION - Physical Exam Results Vital Signs: Vital Signs Temperature 96.3 F L 07/19/17 09:30 Pulse Rate 90 07/19/17 09:30 Respiratory Rate 20 07/19/17 09:30 Blood Pressure 119/75 07/19/17 09:30 O2 Sat by Pulse Oximetry (%) Pertinent Admission Physical Exam Findings: WITHDRAWAL SX Laboratory Last Values WBC 10.0 K/mm3 (4.0-10.0) D 07/16/17 07:00 RBC 4.72 M/mm3 (4.00-5.60) 07/16/17 07:00 Hgb 13.7 GM/dL (11.7-16.9) 07/16/17 07:00 Hct 41.0 % (35.4-49) 07/16/17 07:00 MCV 86.8 fl (80-96) 07/16/17 07:00 MCH 29.0 pg (25.7-33.7) 07/16/17 07:00 MCHC 33.4 g/dl (32.0-35.9) 07/16/17 07:00 RDW 13.1 % (11.9-15.9) 07/16/17 07:00 Plt Count 249 K/MM3 (134-434) 07/16/17 07:00 MPV 8.8 fl (7.5-11.1) 07/16/17 07:00 Sodium 142 mmol/L (136-145) 07/16/17 07:00 Potassium 4.3 mmol/L (3.5-5.1) 07/16/17 07:00 Chloride 103 mmol/L (98-107) 07/16/17 07:00 Carbon Dioxide 30 mmol/L (21-32) 07/16/17 07:00 Anion Gap 9 (8-16) 07/16/17 07:00 BUN 14 mg/dL (7-18) D 07/16/17 07:00 Creatinine 1.1 mg/dL (0.7-1.3) 07/16/17 07:00 Creat Clearance w eGFR > 60 (>60) 07/16/17 07:00 Random Glucose 79 mg/dL (74-106) 07/16/17 07:00 Calcium 9.0 mg/dL (8.5-10.1) 07/16/17 07:00 Total Bilirubin 0.6 mg/dL (0.2-1.0) D 07/16/17 07:00 AST 30 U/L (15-37) D 07/16/17 07:00 ALT 30 U/L (12-78) 07/16/17 07:00 Alkaline Phosphatase 74 U/L (45-117) 07/16/17 07:00 Total Protein 6.5 g/dl (6.4-8.2) 07/16/17 07:00 Albumin 3.7 g/dl (3.4-5.0) 07/16/17 07:00 Urine Color Yellow 07/17/17 16:23 Urine Appearance Slcloudy 07/17/17 16:23 Urine pH 6.0 (5.0-8.0) 07/17/17 16:23 Ur Specific [place] 1.025 (1.005-1.025) 07/17/17 16:23 Urine Protein Negative (NEGATIVE) 07/17/17 16:23 Urine Glucose (UA) Negative (NEGATIVE) 07/17/17 16:23 Urine Ketones Negative (NEGATIVE) 07/17/17 16:23 Urine Blood Negative (NEGATIVE) 07/17/17 16:23 Urine Nitrite Negative (NEGATIVE) 07/17/17 16:23 Urine Bilirubin Negative (NEGATIVE) 07/17/17 16:23 Urine Urobilinogen Negative mg/dL (0.2-1.0) 07/17/17 16:23 Ur Leukocyte Esterase Negative (NEGATIVE) 07/17/17 16:23 RPR Titer Nonreactive (NONREACTIVE) 07/16/17 07:00 - Treatment Hospital Course: Detox Protocol Followed, Detoxed Safely, Responded well, Discharged Condition Good, Rehab Referral Accepted Patient has Accepted a Rehab Referral to: [facility] - Medication Discharge Medications: Ambulatory Orders Benztropine Mesylate [Cogentin -] 1 mg PO BID #60 tablet 11/09/16 Sertraline HCl [Zoloft -] 50 mg PO DAILY #60 tablet 11/09/16 Haloperidol [Haldol -] 5 mg PO BID #60 tablet 01/04/17 Mirtazapine [Remeron -] 15 mg PO HS #30 tablet 07/17/17 Risperidone [Risperdal -] 1 mg PO HS #30 tablet 07/17/17 Sertraline HCl [Zoloft -] 50 mg PO DAILY #30 tablet 07/17/17 - Diagnosis (1) Alcohol dependence with uncomplicated withdrawal Status: Acute (2) Cocaine dependence Status: Acute Qualifiers: Substance use status: uncomplicated Qualified Code(s): F14.20 - Cocaine dependence, uncomplicated (3) Nicotine dependence Status: Acute Qualifiers: Nicotine product type: cigarettes Substance use status: in withdrawal Qualified Code(s): F17.213 - Nicotine dependence, cigarettes, with withdrawal (4) Schizophrenia Status: Chronic Qualifiers: Schizophrenia type: unspecified Qualified Code(s): F20.9 - Schizophrenia, unspecified - AMA Did Patient Leave Against Medical Advice: No
== END 2017-07-19 09:53 | disposition home or self-care (01) | DRG 897 ==
LOC: YASAS 16:48 → Y3N 21:18
PROVIDERS: ADMIT Internal Medicine; ATTEND Internal Medicine
PROC: HZ2ZZZZ Detoxification Services for Substance Abuse Treatment (ICD-10-PCS; principal; 2017-07-15)
DX: F10.230 Alcohol dependence with withdrawal, uncomplicated (principal); F14.20 Cocaine dependence, uncomplicated; F17.213 Nicotine dependence, cigarettes, with withdrawal; F20.9 Schizophrenia, unspecified; Z91.5 Personal history of self-harm; Z59.0 Homelessness
CPT/HCPCS: 36415; 80053; 81003; 85027; 86593; 93005; 93010; J2794